=== PATIENT | female | born 1965 | race African-American/Black ===

== ENCOUNTER 2019-07-08 11:24 | Emergency (ER) | payer MEDICARE, MEDICAID ==
[~2019-07-08] VITALS: Ht 160 cm; Wt 86.5 kg
[~2019-07-08 11:24] MED LIST: GABA-531 PO; METO100T16 PO; SERT-112 PO; SIMV40TA5 PO
[2019-07-08 13:20] VITALS: BP 130/80
== END 2019-07-08 13:20 | disposition home or self-care (01) ==
LOC: ER 11:24
DX: M25.561 Pain in right knee (principal); M23.8X1 Other internal derangements of right knee; M23.306 Other meniscus derangements, unspecified meniscus, right knee; F32.9 Major depressive disorder, single episode, unspecified; Z95.0 Presence of cardiac pacemaker; Z87.891 Personal history of nicotine dependence; X50.1XXA Overexertion from prolonged static or awkward postures, initial encounter; Y93.89 Activity, other specified; Y92.018 Other place in single-family (private) house as the place of occurrence of the external cause
CPT/HCPCS: 73560; 99283; L1830